=== PATIENT | male | born 1975 | race Two or more races ===

== ENCOUNTER 2017-01-20 10:04 | Emergency (ER) | payer MEDICAID ==
[~2017-01-20] VITALS: Ht 165.1 cm; Wt 81.0 kg
[2017-01-20] MEDS ORDERED: KETOROLAC 30MG/ML VIAL IV STA (12:00)
[2017-01-20] MEDS ORDERED: METOCLOPRAMIDE HCL 10MG/2ML VIAL IV ONE (12:00)
[2017-01-20] MEDS ORDERED: SODIUM CHLORIDE 0.9% 1,000 ML IV ONE (12:00)
[2017-01-20 13:34] VITALS: BP 118/75
== END 2017-01-20 14:09 | disposition home or self-care (01) ==
LOC: ER 12:19
DX: R51 Headache (principal)
CPT/HCPCS: 96361; 96374; 96375; 99284; J1885; J2765; J7030; Z7610